=== PATIENT | male | born 1995 | race Caucasian/White ===

== ENCOUNTER 2019-09-18 00:34 | Inpatient (IN) | payer SELFPAY ==
[~2019-09-18] VITALS: Ht 172.7 cm; Wt 62.0 kg
[2019-09-18] VITALS (12 sets, daily range): BP systolic 107–170; BP diastolic 58–84
[2019-09-18] MEDS ORDERED: LACTATED RINGERS 1,000 ML IV ONE ×2 (01:38→04:49)
[2019-09-18] MEDS ORDERED: KETOROLAC 30 MG/ML VIAL IVP ONE (01:45)
[2019-09-18] MEDS ORDERED: ceFAZolin INJECTION 1,000 MG in WATER (STERILE) FOR INJECTION 10 ML IV ONE ×2 (01:45→03:45)
[2019-09-18 02:08] LABS: BASOPHILS % (AUTO) 0 % (0-10); EOSINOPHILS % (AUTO) 0 % (0-10); HEMATOCRIT 47 % (40-54); LYMPHOCYTES # (AUTO) 1.4 X 10^3 (1.0-4.0); LYMPHOCYTES % (AUTO) 13 % (12-44); MEAN CORPUSCULAR HEMOGLOBIN 29 PG (25-34); MEAN CORPUSCULAR HGB CONC 34 G/DL (32-36); MEAN CORPUSCULAR VOLUME 85 FL (80-99); MEAN PLATELET VOLUME 10.9 FL (7.4-10.4); MONOCYTES # (AUTO) 1.1 X 10^3 (0.0-1.0); MONOCYTES % (AUTO) 10 % (0-12); NEUTROPHILS # (AUTO) 8.2 X 10^3 (1.8-7.8); NEUTROPHILS % (AUTO) 77 % (42-75); PLATELET COUNT 202 10^3/uL (130-400); WHITE BLOOD COUNT 10.7 10^3/uL (4.3-11.0)
[2019-09-18 02:27] LABS: ALANINE AMINOTRANSFERASE 33 U/L (0-55); ALBUMIN 4.8 GM/DL (3.2-4.5); ALKALINE PHOSPHATASE 103 U/L (40-136); BILIRUBIN,TOTAL 0.5 MG/DL (0.1-1.0); BUN/CREATININE RATIO 7; CALCIUM 10.3 MG/DL (8.5-10.1); CARBON DIOXIDE 22 MMOL/L (21-32); CHLORIDE 99 MMOL/L (98-107); CREATININE SERUM 0.86 MG/DL (0.60-1.30); GFR ESTIMATED > 60; GLUCOSE 104 MG/DL (70-105); SODIUM 139 MMOL/L (135-145); TOTAL PROTEIN 8.6 GM/DL (6.4-8.2)
--- NOTE | 2019-09-18 04:06 | ED General ---
General Chief Complaint: Dental Problems/Pain Stated Complaint: LEFT SIDE OF JAW SWELLING-PAINFUL Nursing Triage Note: Pt ambulates to [facility] 10 with c/o left sided jaw pain and swelling x 3 days. PT states he was seen at PCP and prescribed PNC on 09/16/19. Pt states PNC made the swelling worse. Pt has temp on arrival of 101.7F. Nursing Sepsis Screen: No Definite Risk Source of Information: Patient Exam Limitations: No Limitations History of Present Illness Date Seen by Provider: Sep 18, 2019 Time Seen by Provider: 01:30 Initial Comments This 24-year-old man presents to the emergency room with complaints of pain and swelling at the left mandible for nearly a week. He was placed on oral penicillin by his primary care provider. Despite treatment, he has worsened over the past few days. He is now febrile and tachycardic. Range of motion of his jaw is significantly limited. Allergies and Home Medications Allergies Coded Allergies: No Known Drug Allergies (Unverified , 09/18/19) Patient Home Medication List Home Medication List Reviewed: Yes Review of Systems Review of Systems Constitutional: see HPI EENTM: see HPI Respiratory: no symptoms reported Cardiovascular: see HPI Gastrointestinal: no symptoms reported Genitourinary: no symptoms reported Musculoskeletal: no symptoms reported Skin: no symptoms reported Psychiatric/Neurological: No Symptoms Reported Hematologic/Lymphatic: No Symptoms Reported Past Onumhqx-Tzzjod-Zrwgwx Hx Past Med/Social Hx: Reviewed Nursing Past Med/Soc Hx Patient Social History Alcohol Use: Rarely Uses Recreational Drug Use: No Smoking Status: Never a Smoker 2nd Hand Smoke Exposure: No Recent Foreign Travel: No Contact w/Someone Who Travel: No Recent Infectious Disease Expo: No Recent Hopitalizations: No Physical Abuse: No Sexual Abuse: No Mistreated: No Fear: No Seasonal Allergies Seasonal Allergies: No Past Medical History Surgeries: Yes (hernia at 2 mo old) Respiratory: No Cardiac: No Neurological: No Genitourinary: No Gastrointestinal: No Musculoskeletal: No Endocrine: No HEENT: No Cancer: No Psychosocial: No Integumentary: No Blood Disorders: No Physical Exam-Suspected Sepsis Physical Exam Vital Signs Vital Signs - First Documented 09/18/19 01:20 Temp 38.7 Pulse 110 Resp 21 B/P (MAP) 101/70 (80) Pulse Ox 98 O2 Delivery Room Air Capillary Refill : Less Than 3 Seconds Blood Pressure Mean: 80 Height, Weight, BMI Height: '" Weight: lbs. oz. kg; 21.00 BMI Method: General Appearance: No Apparent Distress, WD/WN HEENT: PERRL/EOMI, TMs Normal, Other (marked tenderness and swelling around the left mandible. 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 Norm as Tested Skin: normal color, warm/dry Focused Exam Lactate Level 09/18/19 02:01: Lactic Acid Level 0.91 Lactic Acid Level Laboratory Tests Test 09/18/19 02:01 Lactic Acid Level 0.91 MMOL/L (0.50-2.00) Progress/Results/Core Measures Suspected Sepsis Recent Fever Within 48 Hours: No Infection Criteria Present: None New/Unexplained Altered Menta: No Sepsis Screen: No Definite Risk SIRS Temperature: Pulse: 110 Respiratory Rate: 21 Laboratory Tests 09/18/19 02:01: White Blood Count 10.7 Blood Pressure 101 /70 Mean: 80 09/18/19 02:01: Lactic Acid Level 0.91 Laboratory Tests 09/18/19 02:01: Creatinine 0.86, Platelet Count 202, Total Bilirubin 0.5 Results/Orders Lab Results Laboratory Tests Test 09/18/19 02:01 Range/Units White Blood Count 10.7 4.3-11.0 10^3/uL Red Blood Count 5.50 4.35-5.85 10^6/uL Hemoglobin 16.0 13.3-17.7 G/DL Hematocrit 47 40-54 % Mean Corpuscular Volume 85 80-99 FL Mean Corpuscular Hemoglobin 29 25-34 PG Mean Corpuscular Hemoglobin Concent 34 32-36 G/DL Red Cell Distribution Width 13.0 10.0-14.5 % Platelet Count 202 130-400 10^3/uL Mean Platelet Volume 10.9 H 7.4-10.4 FL Neutrophils (%) (Auto) 77 H 42-75 % Lymphocytes (%) (Auto) 13 12-44 % Monocytes (%) (Auto) 10 0-12 % Eosinophils (%) (Auto) 0 0-10 % Basophils (%) (Auto) 0 0-10 % Neutrophils # (Auto) 8.2 H 1.8-7.8 X 10^3 Lymphocytes # (Auto) 1.4 1.0-4.0 X 10^3 Monocytes # (Auto) 1.1 H 0.0-1.0 X 10^3 Eosinophils # (Auto) 0.0 0.0-0.3 10^3/uL Basophils # (Auto) 0.0 0.0-0.1 10^3/uL Sodium Level 139 135-145 MMOL/L Potassium Level 4.0 3.6-5.0 MMOL/L Chloride Level 99 98-107 MMOL/L Carbon Dioxide Level 22 21-32 MMOL/L Anion Gap 18 H 5-14 MMOL/L Blood Urea Nitrogen 6 L 7-18 MG/DL Creatinine 0.86 0.60-1.30 MG/DL Estimat Glomerular Filtration Rate > 60 BUN/Creatinine Ratio 7 Glucose Level 104 70-105 MG/DL Lactic Acid Level 0.91 0.50-2.00 MMOL/L Calcium Level 10.3 H 8.5-10.1 MG/DL Corrected Calcium 8.5-10.1 MG/DL Total Bilirubin 0.5 0.1-1.0 MG/DL Aspartate Amino Transf (AST/SGOT) 28 5-34 U/L Alanine Aminotransferase (ALT/SGPT) 33 0-55 U/L Alkaline Phosphatase 103 40-136 U/L Total Protein 8.6 H 6.4-8.2 GM/DL Albumin 4.8 H 3.2-4.5 GM/DL My Orders Orders - JUNE IQBAL MD Cbc With Automated Diff (09/18/19 01:38) Comprehensive Metabolic Panel (09/18/19 01:38) Blood Culture (09/18/19 01:38) Ed Iv/Invasive Line Start (09/18/19 01:38) Ed Iv/Invasive Line Start (09/18/19 01:38) Vital Signs Adult Sepsis Patie Q15M (09/18/19 01:38) O2 (09/18/19 01:38) Remove Rings In Anticipation O (09/18/19 01:38) Lactic Acid Analyzer (09/18/19 01:38) Lactated Ringers (Lr 1000 Ml Iv Solution (09/18/19 01:38) Cefazolin Injection (Ancef Injection) (09/18/19 01:45) Ketorolac Injection (Toradol Injection) (09/18/19 01:45) Ct Neck (Soft Tissue) W (09/18/19 02:07) Cefazolin Injection (Ancef Injection) (09/18/19 03:45) Medications Given in ED Current Medications Medications Dose Ordered Sig/Emi Route Start Time Stop Time Status Last Admin Dose Admin Cefazolin Sodium 1000 mg/Sterile Water 10 ml @ 200 mls/hr ONCE ONCE IV 09/18/19 01:45 09/18/19 01:47 DC 09/18/19 02:09 200 MLS/HR Cefazolin Sodium 1000 mg/Sterile Water 10 ml @ 200 mls/hr ONCE ONCE IV 09/18/19 03:45 09/18/19 03:47 DC 09/18/19 03:45 200 MLS/HR Ketorolac Tromethamine 30 mg ONCE ONCE IVP 09/18/19 01:45 09/18/19 01:46 DC 09/18/19 02:06 30 MG Lactated Ringer's 1,000 ml @ 0 mls/hr Q0M ONCE IV 09/18/19 01:38 09/18/19 01:42 DC 09/18/19 02:06 999 MLS/HR Vital Signs/I&O 09/18/19 01:20 Temp 38.7 Pulse 110 Resp 21 B/P (MAP) 101/70 (80) Pulse Ox 98 O2 Delivery Room Air Capillary Refill : Less Than 3 Seconds Blood Pressure Mean: 80 Progress Note : Progress Note Patient received Toradol for pain. Empiric antibiotic therapy was started with Ancef. A liter of LR was infused. CT of the neck was obtained and revealed a large abscess at the angle of the mandible. Dr. Avalos was contacted and [facility] accepted consult. He anticipates performing surgery around noon. Patient is to remain nothing by mouth. He requested admission to the hospitalist since the patient is septic. Dr. Feliciano is agreeable to admission. Dr. Avalos requested an additional gram of Ancef now followed by Ancef 1 g every 8 hours. Diagnostic Imaging Diagonstic Imaging: CT Plain Films/CT/US/NM/MRI: other (soft tissues neck) Comments CT viewed by me and [employer] report reviewed. There is a multiloculated fluid collection concerning for abscess inferior to the left mandibular angle measuring 2.7 x 2.6 x 1.9 cm. This may arise from a periapical abscess of tooth number 18. There is extensive left mandibular and submandibular swelling with inflammation seen tracking inferiorly which may reflect a degree of Justice angina. Departure Communication (Admissions) Time/Spoke to Admitting Phy: 03:35 Dr. Feliciano Time/Spoke to Consulting Phy: 03:30 Dr. Avalos Impression Primary Impression: Sepsis Qualified Codes: A41.9 - Sepsis, unspecified organism Additional Impression: Dental abscess Disposition: ADMITTED INPATIENT Condition: Improved Admissions Decision to Admit Reason: Admit from ER (General) Decision to Admit/Date: Sep 18, 2019 Time/Decision to Admit Time: 03:20 Departure-Patient Inst. Referrals: NO,LOCAL PHYSICIAN (PCP/Family) Primary Care Physician JUNE IQBAL MD Sep 18, 2019 04:06
--- NOTE | 2019-09-18 04:55 | NUR ---
FLACO TAY admitted to room 422-1, with an admitting diagnosis of SEPSIS,DENTAL ABCESS, on 09/18/19 from [place] via WHEELCHAIR, accompanied by STAFF.FLACO TAY introduced to surroundings, call light, bed controls, phone, TV, temperature control, lights, meal times, smoking policy, visitor policy, side rail policy, bathrooms and showers. Patient Rights given to patient in the handbook. FLACO TAY verbalizes understanding that [facility] is not responsible for the loss or damage to any personal effects or valuables that are kept in the patients posession during their hospitalization.
[2019-09-18] MEDS: LACTATED RINGERS 1,000 ML IV SCH ×3 (05:00→21:07)
[2019-09-18] MEDS ORDERED: ONDANSETRON 4 MG/2 ML (SDV) Z0FRAN IV PRN (05:45)
[2019-09-18] MEDS ORDERED: ceFAZolin 1,000 MG/SWFI 10 ML IV PUSH IV SCH ×2 (06:00)
--- NOTE | 2019-09-18 06:47 | Diagnostic Imaging Report ---
CLINICAL INDICATION: Patient left-sided jaw pain and swelling. EXAM: Axial CT scan of the Neck soft tissue performed with 75 mL of 350 IV contrast. Coronal and sagittal reformatted images were created. COMPARISON: None. FINDINGS: There is moderate soft tissue swelling involving the left perimandibular region with fat stranding. There is a roughly 2.7 x 2.6 x 1.9 cm lobulated low-density peripherally enhancing fluid collection in the right mandibular region by the body and angle which is concerning for abscess. Poor dentition is noted in this region with dental caries and erosions adjacent to the root of the mandibular left 2nd molar tooth. There is also cortical disruption involving the medial aspect of the cortex of the left mandible near the angle region which is near the area of the fluid collection. There is mild soft tissue thickening of the anterior belly of the left digastric muscle. There is no significant fluid collection in the sublingual space and all of the swelling appears to be in the left perimandibular/left submandibular region. There is slight left to right shift of the intrinsic tongue structures. There is no evidence of airway narrowing seen. Mildly prominent submandibular and upper neck lymph nodes seen. The remaining Neck soft tissue structures are unremarkable. The salivary glands and thyroid gland are grossly unremarkable. The visualized upper lung alexis are clear. Cervical spine is unremarkable. Visualized intracranial structures are unremarkable. IMPRESSION: 1: There is concern for a left perimandibular abscess with moderate amount of left perimandibular and submandibular fat stranding. There is associated dental caries involving the mandibular left 2nd molar tooth and erosions adjacent to the root of this tooth. There is also cortical defect involving the medial aspect of the angle of the left mandible region. There is mild mass effect upon the tongue structures towards the right with no evidence of airway compromise seen on this exam. 2. Mild lymphadenopathy. I agree with [facility] report. Dictated by: Dictated on workstation # [id number]
[2019-09-18] MEDS ORDERED: [UNRECOGNIZED DRUG - CODE] PO (08:45)
[2019-09-18] MEDS: fentaNYL INJECTION 100 MCG/2 ML AMP IV PRN ×4 (10:17→21:07)
--- NOTE | 2019-09-18 10:18 | History & Physical-Hospitalist ---
History of Present Illness HPI/Chief Complaint Pt is a 24yo CM with no known past medical history who presented to the ER due to jaw pain and swelling. He was seen at Dr Becerra's office on 09/11/19 for this and was started on Penicillin. Despite this he continued to worsen. He states his pain increase and he developed fevers prompting him to see evaluation in the ER. CT was done which revealed a left perimandibular abscess. Dr Avalos was contacted and plan is to go to the OR today for I&D. Patient did meet sepsis criteria and thus was admitted for IV abx. He reports he feels the same today as he did yesterday and still has pain. Source: patient Date Seen 09/18/19 Time Seen by a Provider: 10:12 Attending Physician Oneal Feliciano MD PCP No,Local Physician Referring Physician Date of Admission Sep 18, 2019 at 03:40 Home Medications & Allergies Home Medications Reviewed patient Home Medication Reconciliation performed by pharmacy medication reconciliations sound effects technician and/or nursing. Patients Allergies have been reviewed. Allergies Allergies Coded Allergies No Known Drug Allergies (Unverified09/18/19) Past Pdnvqiq-Qplfnh-Znsqlc Hx Past Med/Social Hx: Reviewed Nursing Past Med/Soc Hx Patient Social History Alcohol Use: Rarely Uses Recreational Drug Use: No Smoking Status: Never a Smoker 2nd Hand Smoke Exposure: No Recent Foreign Travel: No Contact w/other who traveled: No Recent Hopitalizations: No Recent Infectious Disease Expo: No Seasonal Allergies Seasonal Allergies: No Past Medical History History of Blood Disorders: No Family History Reviewed Nursing Family Hx Review of Systems Constitutional: chills, fever EENTM: see HPI, dental problems, mouth pain, throat pain (odynophagia) Respiratory: no symptoms reported Cardiovascular: no symptoms reported Gastrointestinal: no symptoms reported Genitourinary: no symptoms reported Musculoskeletal: no symptoms reported Skin: no symptoms reported Psychiatric/Neurological: No Symptoms Reported Physical Exam Physical Exam Vital Signs Vital Signs - First Documented 09/18/19 01:20 Temp 38.7 Pulse 110 Resp 21 B/P (MAP) 101/70 (80) Pulse Ox 98 O2 Delivery Room Air Capillary Refill : Less Than 3 Seconds Height, Weight, BMI Height: '" Weight: lbs. oz. kg; 20.78 BMI Method: General Appearance: No Apparent Distress, WD/WN HEENT: Moist Mucous Membranes, Other (poor dentition, swelling on left side of face) Respiratory: Lungs Clear, No Respiratory Distress Cardiovascular: No JVD, No Murmur, Tachycardia Gastrointestinal: Normal Bowel Sounds, Non Tender, Soft Extremity: No Calf Tenderness, No Pedal Edema Neurologic/Psychiatric: Alert, Oriented x3 Results Results/Procedures Labs Laboratory Tests 09/18/19 02:01 Patient resulted labs reviewed. Imaging: Reviewed Imaging Report Imaging Date of Exam:09/18/19 CT NECK (SOFT TISSUE) W CLINICAL INDICATION: Patient left-sided jaw pain and swelling. EXAM: Axial CT scan of the Neck soft tissue performed with 75 mL of 350 IV contrast. Coronal and sagittal reformatted images were created. COMPARISON: None. FINDINGS: There is moderate soft tissue swelling involving the left perimandibular region with fat stranding. There is a roughly 2.7 x 2.6 x 1.9 cm lobulated low-density peripherally enhancing fluid collection in the right mandibular region by the body and angle which is concerning for abscess. Poor dentition is noted in this region with dental caries and erosions adjacent to the root of the mandibular left 2nd molar tooth. There is also cortical disruption involving the medial aspect of the cortex of the left mandible near the angle region which is near the area of the fluid collection. There is mild soft tissue thickening of the anterior belly of the left digastric muscle. There is no significant fluid collection in the sublingual space and all of the swelling appears to be in the left perimandibular/left submandibular region. There is slight left to right shift of the intrinsic tongue structures. There is no evidence of airway narrowing seen. Mildly prominent submandibular and upper neck lymph nodes seen. The remaining Neck soft tissue structures are unremarkable. The salivary glands and thyroid gland are grossly unremarkable. The visualized upper lung alexis are clear. Cervical spine is unremarkable. Visualized intracranial structures are unremarkable. IMPRESSION: 1: There is concern for a left perimandibular abscess with moderate amount of left perimandibular and submandibular fat stranding. There is associated dental caries involving the mandibular left 2nd molar tooth and erosions adjacent to the root of this tooth. There is also cortical defect involving the medial aspect of the angle of the left mandible region. There is mild mass effect upon the tongue structures towards the right with no evidence of airway compromise seen on this exam. 2. Mild lymphadenopathy. Assessment/Plan Admission Diagnosis Sepsis Admission Status: Inpatient Order (span 2 midnights) Reason for Inpatient Admission: IV abx, sepsis, await blood cultures Assessment and Plan Sepsis Perimandibular abscess Continue IV abx Plan for OR today Appreciate Dr Avalos's assistance Discussed with Dr Becerra who will take over care of the patient Await cultures Diagnosis/Problems Diagnosis/Problems (1) Dental abscess Status: Acute (2) Sepsis Status: Acute Qualifiers: Sepsis type: sepsis due to unspecified organism Sepsis acute organ dysfunction status: without acute organ dysfunction Qualified Codes: A41.9 - Sepsis, unspecified organism Clinical Quality Measures DVT/VTE Risk/Contraindication: Risk Factor Score Per Nursin RFS Level Per Nursing on Admit: 3=High RUBEN MARIN MD Sep 18, 2019 10:18
[2019-09-18] MEDS: ceFAZolin 1,000 MG/SWFI 10 ML IV PUSH IV SCH ×4 (11:33→19:49)
--- NOTE | 2019-09-18 13:33 | Diagnostic Imaging Report ---
INDICATION: Left-sided jaw pain and swelling. TIME OF EXAM: 10:53 a.m. FINDINGS: Panorex exam was performed. Mandible appears intact. No fractures are seen. There is some lucency identified in the periapical location of left-sided tooth, No. 18. Remaining teeth are unremarkable. IMPRESSION: There is some periapical lucency at tooth No. 18, perhaps periapical abscess. No other significant abnormality is seen. Dictated by: Dictated on workstation # [id number]
[2019-09-18] MEDS ORDERED: LIDOCAINE/EPI 1%-1:200,000 (XYLOCAINE) 30 ML VIAL ONE (15:01)
[2019-09-18] MEDS ORDERED: LIDOCAINE/EPI 2% 1:100,00 (XYLOCAINE) 20 ML VIAL ONE (15:05)
[2019-09-18] MEDS ORDERED: NEO/POLY/BAC (NEOSPORIN) OINT 15 GM TUBE ONE (15:06)
[2019-09-18] MEDS ORDERED: LACTATED RINGERS 1,000 ML IV PRN (15:30)
[2019-09-18] MEDS ORDERED: PHENYLEPHRINE 0.25% NASAL SPR (NEO-SYNEPHRINE) 15 ML NS ONE (15:38)
[2019-09-18] MEDS ORDERED: proPOfol 200 MG/20 ML (DIPRIVAN) VIAL IV ONE (15:39)
[2019-09-18] MEDS ORDERED: MIDAZOLAM 2 MG/2 ML (VERSED) VIAL ONE (15:39)
[2019-09-18] MEDS ORDERED: DEXAMETHASONE 10 MG/ML (DECADRON) 1 ML VIAL ONE (15:39)
[2019-09-18] MEDS ORDERED: ROCURONIUM 10 MG/ML 5 ML SYRINGE IV ONE (15:39)
[2019-09-18] MEDS ORDERED: ONDANSETRON 4 MG/2 ML (SDV) Z0FRAN ONE (15:39)
[2019-09-18] MEDS ORDERED: fentaNYL INJECTION 100 MCG/2 ML AMP ONE (15:39)
[2019-09-18] MEDS ORDERED: LIDOCAINE PF 2% 5 ML (XYLOCAINE) VIAL ONE (15:39)
[2019-09-18] MEDS ORDERED: SEVOFLURANE (ULTANE) 15 ML INHAL SOLN ONE (15:39)
[2019-09-18] MEDS ORDERED: morphine INJ 10 MG/ML 1ML (SYR OR VIAL) ONE (15:51)
[2019-09-18] MEDS ORDERED: ROPIVACAINE 5MG/ML 30ML VIAL ONE (16:16)
--- NOTE | 2019-09-18 16:40 | NUR ---
Pt currently off unit in surgery at this time
--- NOTE | 2019-09-18 16:55 | Anesthesia-General Post-Op ---
General Patient Condition Mental Status/LOC: Same as Preop Cardiovascular: Satisfactory Nausea/Vomiting: Absent Respiratory: Satisfactory Pain: Controlled Complications: Absent Post Op Complications Complications None Follow Up Care/Instructions Patient Instructions None needed. Anesthesia/Patient Condition Patient Condition Patient is doing well, no complaints, stable vital signs, no apparent adverse anesthesia problems. No complications reported per nursing. DIANE HOUSE CRNA Sep 18, 2019 16:54
[2019-09-18] MEDS ORDERED: morphine INJ 10 MG/ML 1ML (SYR OR VIAL) IVP ONE (17:00)
[2019-09-18] MEDS ORDERED: ONDANSETRON 4 MG/2 ML (SDV) Z0FRAN IVP PRN (17:00)
--- NOTE | 2019-09-18 17:35 | NUR ---
Pt arrived to floor from recovery, report received from Bailey SANFORD
[2019-09-19] VITALS: BP 122/72
[2019-09-19] MEDS: ceFAZolin 1,000 MG/SWFI 10 ML IV PUSH IV SCH ×6 (03:42→19:53)
[2019-09-19] MEDS: LACTATED RINGERS 1,000 ML IV SCH ×3 (03:42→16:18)
[2019-09-19 04:00] VITALS: BP 115/73
--- NOTE | 2019-09-19 07:51 | Progress Note ---
Subjective Time Seen by a Provider: 07:49 Subjective/Events-last exam Patient feeling better today. Patient afebrile. Sepsis. Dental abscess Focused Exam Lactate Level 09/18/19 02:01: Lactic Acid Level 0.91 Objective Exam Vital Signs Date Time Temp Pulse Resp B/P (MAP) Pulse Ox O2 Delivery O2 Flow Rate FiO2 09/19/19 04:00 36.8 78 16 115/73 (87) 98 Room Air 09/19/19 00:00 36.7 89 16 122/72 (89) 99 Room Air 09/18/19 19:50 Room Air 09/18/19 19:21 36.8 99 20 134/84 (101) 97 Nasal Cannula 2.00 09/18/19 17:44 37.2 110 20 120/67 (84) 98 Room Air 09/18/19 17:35 Room Air 09/18/19 17:35 37.3 16 123/72 (89) 93 Room Air 09/18/19 17:30 16 123/72 (89) 93 Room Air 09/18/19 17:25 Room Air 09/18/19 17:20 14 124/75 (91) 94 Room Air 09/18/19 17:10 Room Air 09/18/19 17:10 12 124/76 (92) 96 Room Air 09/18/19 17:00 12 130/74 (92) 99 Room Air 09/18/19 16:55 OxyMask 2 09/18/19 16:50 14 141/69 (93) 100 OxyMask 2 09/18/19 16:43 37.5 20 141/77 (98) 100 OxyMask 6 09/18/19 16:43 OxyMask 6 09/18/19 12:00 37.2 90 16 107/58 (74) 98 Room Air 09/18/19 08:00 Room Air 09/18/19 08:00 36.1 97 18 115/66 (82) 97 Room Air I & O 09/19/19 07:00 Intake Total 2620 ml Balance 2620 ml Capillary Refill : Less Than 3 SecondsLess Than 3 Seconds General Appearance: No Apparent Distress, Thin Neck: Full Range of Motion Respiratory: Lungs Clear, No Accessory Muscle Use, No Respiratory Distress Cardiovascular: Regular Rate, Rhythm, No Murmur Gastrointestinal: non tender, soft Assessment/Plan Assessment/Plan Assess & Plan/Chief Complaint Left perimandibular abscess. Dental cavities. Sepsis Clinical Quality Measures DVT/VTE Risk/Contraindication: Risk Factor Score Per Nursin RFS Level Per Nursing on Admit: 3=High Other: Pt had colon resection today HORACIO CHE DO Sep 19, 2019 07:51
[2019-09-19 08:00] VITALS: BP 115/67
[2019-09-19 08:10] LABS: BASOPHILS % (AUTO) 0 % (0-10); EOSINOPHILS % (AUTO) 0 % (0-10); HEMATOCRIT 40 % (40-54); HEMOGLOBIN 13.4 G/DL (13.3-17.7); LYMPHOCYTES # (AUTO) 0.9 X 10^3 (1.0-4.0); LYMPHOCYTES % (AUTO) 8 % (12-44); MEAN CORPUSCULAR HEMOGLOBIN 29 PG (25-34); MEAN CORPUSCULAR HGB CONC 34 G/DL (32-36); MEAN CORPUSCULAR VOLUME 86 FL (80-99); MEAN PLATELET VOLUME 10.5 FL (7.4-10.4); MONOCYTES # (AUTO) 0.9 X 10^3 (0.0-1.0); MONOCYTES % (AUTO) 8 % (0-12); NEUTROPHILS # (AUTO) 9.4 X 10^3 (1.8-7.8); NEUTROPHILS % (AUTO) 83 % (42-75); PLATELET COUNT 209 10^3/uL (130-400); RED CELL DISTRIBUTION WIDTH 12.9 % (10.0-14.5); WHITE BLOOD COUNT 11.2 10^3/uL (4.3-11.0)
[2019-09-19] MEDS: fentaNYL INJECTION 100 MCG/2 ML AMP IV PRN ×3 (08:47→14:52)
[2019-09-19 12:00] VITALS: BP 111/56
[2019-09-19 16:00] VITALS: BP 99/56
[2019-09-20 00:03] VITALS: BP 111/68
[2019-09-20] MEDS: LACTATED RINGERS 1,000 ML IV SCH ×2 (00:20→06:46)
[2019-09-20 04:07] VITALS: BP 103/52
[2019-09-20] MEDS: ceFAZolin 1,000 MG/SWFI 10 ML IV PUSH IV SCH ×4 (04:23→11:34)
[2019-09-20] MEDS: fentaNYL INJECTION 100 MCG/2 ML AMP IV PRN (04:23)
[2019-09-20 08:00] VITALS: BP 105/64
[2019-09-20] MEDS ORDERED: HYDROcodone/APAP 7.5MG-325 MG/15 ML (LORTAB) UDC PO PRN (10:00)
[2019-09-20] MEDS ORDERED: CEPH-507 PO (13:35)
[2019-09-20] MEDS ORDERED: HYDR15SO6 PO (13:35)
--- NOTE | 2019-09-20 13:45 | Discharge Inst-Simple/Standard ---
Discharge Inst-Standard Reconcile Patient Problems Problems Reviewed?: Yes Discharge Medications New, Converted or Re-Newed RX: Transmitted to Pharmacy Patient Instructions/Follow Up Plan of Care/Instructions/FU: Please continue taking medications as written. Please follow up with Dr. Becerra next week. Please follow up with Dr. Avalos on Sunday. Activity as Tolerated: Yes Discharge Diet: Soft Diet Return to The Hospital For: Fever, chills, difficulty swallowing, increasing pain, drainage, if you feel you're getting worse. RUBEN MARIN MD Sep 20, 2019 13:44
--- NOTE | 2019-09-20 13:47 | Discharge Summary ---
Diagnosis/Chief Complaint Date of Admission Sep 18, 2019 at 03:40 Date of Discharge Discharge Date: Sep 20, 2019 Admission Diagnosis Sepsis Primary Care No,Local Physician Discharge Diagnosis (1) Dental abscess Status: Acute (2) Sepsis Status: Acute Discharge Summary Discharge Physical Exam Allergies: Coded Allergies: No Known Drug Allergies (Unverified , 09/18/19) Vitals & I&Os Vital Signs Date Time Temp Pulse Resp B/P (MAP) Pulse Ox O2 Delivery O2 Flow Rate FiO2 09/20/19 08:00 Room Air 09/20/19 08:00 37.0 90 20 105/64 (78) 96 09/19/19 08:00 2.00 General Appearance: No Apparent Distress, WD/WN Cardiovascular: Regular Rate, Rhythm, No Murmur Neurologic/Psychiatric: Alert, Oriented x3 Hospital Course Patient was admitted to the hospital due to a perimandibular abscess and sepsis. He was treated with Ancef and underwent I&D in the OR with Dr. Avalos. 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 He was transitioned to a liquid diet and tolerated that well. He was discharged home in stable condition to follow-up with Dr. Becerra next week and with Dr. Avalos on September 23. Pain medication and oral antibiotic source to his pharmacy. Labs (last 24 hrs) Microbiology 09/18/19 Gram Stain - Final, Resulted 09/18/19 Anaerobic Culture, Resulted Pending 09/18/19 Surgical Culture - Preliminary, Resulted Mixed Bacterial Falguni Testing In Progress 09/18/19 MRSA Screen - Final, Complete MRSA not isolated 09/18/19 Blood Culture - Preliminary, Resulted No growth Patient resulted labs reviewed. Imaging: Reviewed Imaging Report Discussion & Recommendations Discharge Planning: >30 minutes discharge planning Discharge Home Medications: Active Scripts Active Lortab 7.5-325 Mg/15 Ml Udc (Acetaminophen/Hydrocodone Bitart) 15 Ml Solution 10 Ml PO Q4H PRN Keflex (Cephalexin) 500 Mg Capsule 500 Mg PO BID Reported Penicillin V Potassium 250 Mg/5 Ml Susp 10 Ml PO QID 7 Days FILLED #300ML 09-16-19 Instructions to patient/family Please see electronic discharge instructions given to patient. Clinical Quality Measures DVT/VTE Risk/Contraindication: Risk Factor Score Per Nursin RFS Level Per Nursing on Admit: 4+=Very High Other: Pt had colon resection today Problem Qualifiers (1) Sepsis: Sepsis type: sepsis due to unspecified organism Sepsis acute organ dysfunction status: without acute organ dysfunction Qualified Codes: A41.9 - Sepsis, unspecified organism RUBEN MARIN MD Sep 20, 2019 13:47
[2019-09-20 15:30] VITALS: BP 105/64
--- NOTE | 2019-09-20 15:31 | NUR ---
FLACO TAY demonstrates understanding of discharge instructions and accurately returns instructions upon questioning. Copy of Post-Discharge Instructions and Medication Discharge Instructions given to pt. FLACO TAY is able to manage continuing needs after discharge. Patients belongings returned to pt.Prescriptions, follow up and instructions given to pt. Skin dry and intact; no breakdown noted. Patient discharged from [facility]- on 09/20/2019 at 1530. FLACO TAY left floor via , accompanied by satff and family.
--- NOTE | 2019-10-09 11:27 | OPERATIVE REPORT ---
DATE OF SERVICE: 09/18/2019 PREOPERATIVE DIAGNOSIS: Left submandibular abscess. POSTOPERATIVE DIAGNOSIS: Left submandibular abscess. PROCEDURE: Extraction of teeth numbers 18, 19, 15 and 16 as well as incision and drainage of left submandibular abscess. SURGEON: Martin Reyes DDS TRANSIT MECHANIC: . ANESTHESIA: General endotracheal. COMPLICATIONS: There were no complications. ESTIMATED BLOOD LOSS: Minimal. FLUIDS: 750 mL of crystalloid. Instrument, needle and sponge count were correct x2. HISTORY OF PRESENT ILLNESS AND INDICATION FOR PROCEDURE: The patient is a 24-year-old essentially healthy white male, who presented to the ER and then was admitted and placed on the floor. After evaluating him, he had a left submandibular abscess trismus. He can only open to 10 mm. Had grossly carious and nonfunctional teeth #18, 15 as well as impacted and infected tooth #17. After speaking with him extensively advised him we would need to perform a submandibular incision and drainage extraorally and then also removed the indicated teeth that were again grossly carious and what etiology of this abscess. The patient was allowed to ask questions. He was then scheduled for surgery at the earliest opportune time. DESCRIPTION OF PROCEDURE: The patient was taken to the operating room and placed on the operating table. The appropriate monitors were placed and anesthesia was induced via orotracheal intubation without difficulty. Once this was secured, the surgeon left the room, scrubbed, returned, donned sterile gowns and gloves and then prepped and draped the patient in the usual standard sterile fashion. After this, we deposited local anesthesia in a left mandibular block and then approximately 2 fingerbreadths underneath the inferior border of the mandible on the left side. After evaluating him tooth #15 was grossly carious and nonrestorable as well as tooth #16. After this, I used a #15 blade to excise through the skin and subcutaneous tissue in the left submandibular region then used a hemostat to bluntly dissect into the abscess cavity. We were able to generate purulent drainage. After this, we placed a 16 gauge red rubber catheter and then irrigated this area extensively with normal saline and hydrogen peroxide mixture. After this, I then elevated tooth #18 and 17 with a 301 elevator and removed without difficulty. There was no more purulent drainage as we perform this procedure. Then, tooth #15, which was grossly carious and broken down, 15 was removed as well as tooth #16 intraorally. I then placed gauze for hemostasis. We then secured the red rubber catheter with a 3-0 nylon suture. We placed a throat pack prior to starting the procedure. This was then removed. This completed our procedure. He was allowed to emerge from his general anesthetic. He was then extubated in the operating room after breathing spontaneously and then transported to the recovery room where he was assessed to have stable vital signs, breathing spontaneously with a pulse ox of 99%. Job ID: [id number] DocumentID: [id number] Dictated Date: 10/09/2019 08:56:37 Transportation Planning Technician Date: 10/09/2019 11:26:07 Dictated By: MARTIN REYES DDS
== END 2019-09-20 15:30 | disposition home or self-care (01) | DRG 855 ==
LOC: EDUNIT# 00:34 → ER 00:38 → 4TH 03:40
PROVIDERS: ADMIT Internal Medicine; ATTEND Family Medicine
PROC: 0CDXXZ1 Extraction of Lower Tooth, Multiple, External Approach (ICD-10-PCS; 2019-09-18)
PROC: 0J910ZZ Drainage of Face Subcutaneous Tissue and Fascia, Open Approach (ICD-10-PCS; principal; 2019-09-18 16:07)
DX: A41.9 Sepsis, unspecified organism (principal); K04.7 Periapical abscess without sinus; M27.2 Inflammatory conditions of jaws
CPT/HCPCS: 36415; 70355; 70491; 80053; 83605; 85025; 87040; 87070; 87075; 87076; 87081; 87205; 88300; 96361; 96374; 96375